=== PATIENT | male | born 1980 | race Caucasian/White ===

== ENCOUNTER 2016-09-12 13:21 | Emergency (ER) | payer OTHER ==
[~2016-09-12] VITALS: Ht 172.7 cm; Wt 79.3 kg
[2016-09-12 14:43] LABS: MCH 31.5 PG (29.0-34.0); MCHC 35.3 G/DL (30.0-36.0); MCV 89.1 FL (86-99); PLATELET COUNT 257 K/uL (156-360); RBC DIS.WIDTH-CV 12.6 % (11.8-14.6); RBC DIS.WIDTH-SD 41.3 % (39-53); RED BLOOD COUNT 3.59 M/uL (4.00-5.50); WHITE BLOOD COUNT 4.7 K/uL (4.1-10.2)
[2016-09-12 14:53] LABS: CHLORIDE 104 mEq/L (99-109); POTASSIUM 3.9 mEq/L (3.7-5.4); SODIUM 139 mEq/L (136-147)
[2016-09-12 14:55] LABS: GLUCOSE 81 mg/dL (70-99)
[2016-09-12 14:57] LABS: ANION GAP 10 MEQ/L (2-14)
[2016-09-12 15:00] LABS: UREA NITROGEN (BUN) 13 mg/dL (9-23)
[2016-09-12 15:01] LABS: GFR ESTIMATE (CALCULATED) > 59 mL/min/
[2016-09-12 21:16] VITALS: BP 147/106
== END 2016-09-12 21:30 | disposition short-term general hospital (02) ==
LOC: EME 13:21
PROVIDERS: Emergency Medicine
DX: L03.115 Cellulitis of right lower limb (principal); J45.909 Unspecified asthma, uncomplicated; M79.661 Pain in right lower leg
CPT/HCPCS: 73590; 80048; 85027; 93971; 99281; 99285; J2270; J2405; J3370